=== PATIENT | female | born 1990 | race Two or more races ===

== ENCOUNTER 2019-08-29 11:43 | Emergency (ER) | payer SELFPAY ==
[~2019-08-29] VITALS: Ht 160 cm; Wt 63.5 kg
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
--- NOTE | 2019-08-29 11:58 | NUR ---
number for contact shahnaz pickett [phone]
--- NOTE | 2019-08-29 18:31 | NUR ---
pt is awake, ambulatory w/ steady gait. pt states that she lived w/ her boyfriend. boyfriend was called and will take patient home. pt is [id number]. stable vitals. was provided w/ bus pass initially. 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
[2019-08-29 18:44] VITALS: BP 112/60
== END 2019-08-29 18:45 | disposition home or self-care (01) ==
LOC: ER 11:43
DX: T40.1X1A Poisoning by heroin, accidental (unintentional), initial encounter (principal); F19.10 Other psychoactive substance abuse, uncomplicated; Y92.89 Other specified places as the place of occurrence of the external cause
CPT/HCPCS: 36415; G0480